=== PATIENT | male | born 2000 | race Caucasian/White ===

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

== ENCOUNTER 2021-06-03 16:10 | Emergency (ER) | payer OTHER, MEDICAID ==
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
[2021-06-03] MEDS: Lidocaine 2% with EPINEPHrine 1:100,000 20 ML MDV ONE (16:59)
== END 2021-06-03 20:10 | disposition home or self-care (01) ==
LOC: SUPCPDRO 16:10 → LL.ED 16:10
DX: S06.9X9A Unspecified intracranial injury with loss of consciousness of unspecified duration, initial encounter (principal); S01.81XA Laceration without foreign body of other part of head, initial encounter; S30.810A Abrasion of lower back and pelvis, initial encounter; S20.419A Abrasion of unspecified back wall of thorax, initial encounter; M54.2 Cervicalgia; M25.521 Pain in right elbow; R59.0 Localized enlarged lymph nodes; H61.23 Impacted cerumen, bilateral; Z88.2 Allergy status to sulfonamides; V89.2XXA Person injured in unspecified motor-vehicle accident, traffic, initial encounter
CPT/HCPCS: 12002; 70450; 72125; 72128; 73080-RT; 99284; 99284-25